=== PATIENT | male | born 1970 | race Caucasian/White ===

== ENCOUNTER 2020-01-22 09:05 | Emergency (ER) | payer OTHER ==
[2020-01-22] MEDS ORDERED: EPINEPHrine 1 MG/10 ML Abboject SYRINGE ONE (09:23)
[2020-01-22] MEDS ORDERED: Sodium Bicarb 50 MEQ/50 ML Abboject 8.4% SYRINGE ONE (09:23)
[2020-01-22] MEDS ORDERED: Sodium Chloride 0.9% 1,000 ML BAG ONE (09:23)
[2020-01-22] MEDS ORDERED: Sodium Chloride 0.9% 500 ML BAG ONE (09:23)
[2020-01-22] MEDS ORDERED: Calcium Chloride 1 GM/10 ML Abboject SYRINGE ONE (09:23)
[2020-01-22 09:32] LABS: Eosinophils 3 % (0-10); Hemoglobin 13.5 g/dL (14.0-18.0); Lymphocytes 14 % (21-51); MDiff Complete? YES; Mean Corpuscular HGB CONC 31.6 g/dL (32.0-36.0); Mean Corpuscular Hemoglobin 30.6 pg (27.0-31.0); Mean Corpuscular Volume 96.8 fL (78.0-98.0); Monocytes 1 % (0-10); Neutrophil 11 % (42-75); Platelet Count 179 thou/uL (130-400); Platelet Morphology Comment Appears Adequate; RBC Distribution Width 12.7 % (11.5-14.5); Reactive Lymphocytes 71 % (0-10); Red Blood Cell (RBC) Count 4.41 mill/uL (4.70-6.10); Reflex for Review?? YES; White Blood Cell (WBC) Count 11.8 thou/uL (4.8-10.8)
[2020-01-22 09:37] LABS: Chloride 106 mmol/L (98-107); Potassium 5.8 mmol/L (3.5-5.1); Sodium 144 mmol/L (136-145)
[2020-01-22 09:38] LABS: Anion Gap 32 mmol/L (10-20); BUN (Urea Nitrogen) 21 mg/dL (8.9-20.6); Bilirubin, Total 0.6 mg/dL (0.2-1.2); Calc. Creatinine Clearance 0 mL/min (70-130); Calcium 8.9 mg/dL (7.8-10.44); Carbon Dioxide 12 mmol/L (22-29); Estimated GFR-MDRD 49; Glucose 349 mg/dL (70-105)
[2020-01-22 09:39] LABS: ALT (SGPT) 1222 U/L (8-55); AST (SGOT) 1015 U/L (5-34); Albumin 3.6 g/dL (3.5-5.0); Alkaline Phosphatase 60 U/L (40-110); Globulin 2.5 g/dL (2.4-3.5); Protein, Total 6.1 g/dL (6.0-8.3)
[2020-01-22 09:42] LABS: CKMB 2.4 ng/mL (0-6.6); Troponin I 0.021 ng/mL (< 0.028)
== END 2020-01-22 13:50 | disposition expired ==
LOC: MADERS 09:05
DX: I46.9 Cardiac arrest, cause unspecified (principal)
CPT/HCPCS: 31500; 36556; 80053; 82553; 83735; 84484; 85025; 85060; 92950; 96361; 96374; 96375; J0171; J7030; J7050